=== PATIENT | female | born 1960 | race Caucasian/White ===

== ENCOUNTER 2023-09-26 14:07 | Emergency (ER) | payer OTHER ==
[~2023-09-26] VITALS: Ht 154.9 cm; Wt 83.0 kg
[~2023-09-26 14:07] MED LIST: ACET-2247 PO
[2023-09-26 14:17] VITALS: TEMP 98.3
[2023-09-26] MEDS ORDERED: HYDROmorphone HCL 2 MG/ML SYRINGE IVP ONE (15:00)
[2023-09-26] MEDS ORDERED: ONDANSETRON HCL 4 MG/2 ML VIAL IVP ONE (15:00)
[2023-09-26] MEDS: HYDROmorphone HCL 2 MG/ML SYRINGE IM ONE ×2 (15:31→16:22)
[2023-09-26] MEDS: ONDANSETRON HCL 4 MG/2 ML VIAL IM ONE (15:38)
[2023-09-26] MEDS ORDERED: IBUP-1554 PO (18:37)
[2023-09-26] MEDS ORDERED: PERCT PO (18:37)
[2023-09-26 20:01] VITALS: BP 142/65; PULSE 71; RESP 16
== END 2023-09-26 20:03 | disposition home or self-care (01) ==
LOC: EMS 14:07
DX: S42.292A Other displaced fracture of upper end of left humerus, initial encounter for closed fracture (principal); F17.210 Nicotine dependence, cigarettes, uncomplicated; Z98.890 Other specified postprocedural states; Z88.0 Allergy status to penicillin; Z91.040 Latex allergy status; Z88.6 Allergy status to analgesic agent; Z88.8 Allergy status to other drugs, medicaments and biological substances; W01.0XXA Fall on same level from slipping, tripping and stumbling without subsequent striking against object, initial encounter; Y93.89 Activity, other specified; Y92.89 Other specified places as the place of occurrence of the external cause; Y99.8 Other external cause status
CPT/HCPCS: 99285; 23650; 73200; 73030; 96372; J1170; J2405; 29240

== ENCOUNTER 2024-08-01 19:24 | Inpatient (IN) | payer MEDICARE, OTHER ==
[~2024-08-01] VITALS: Ht 154.9 cm; Wt 102.1 kg
[~2024-08-01 19:24] MED LIST changes: +IBUP-1554 PO; +PERCT PO
[2024-08-01] MEDS ORDERED: FLUT16H NASAL (19:39)
[2024-08-01] MEDS ORDERED: CARV6.2534 PO (19:39)
[2024-08-01] MEDS ORDERED: LORA10TA7 PO (19:39)
[2024-08-01] MEDS ORDERED: QUET200T30 PO (19:39)
[2024-08-01] MEDS ORDERED: TRAZ-257 PO (19:39)
[2024-08-01] MEDS ORDERED: MIRT-93 PO (19:39)
[2024-08-01] MEDS ORDERED: PANT40TA54 PO (19:39)
[2024-08-01] MEDS ORDERED: ATOR40TA71 PO (19:39)
[2024-08-01 20:01] LABS: BASOPHILS % (AUTO) 0.6 % (0.0-2.0); EOSINOPHILS % (AUTO) 2.4 % (1.0-6.0); HEMOGLOBIN 13.4 g/dL (12.0-16.0); LYMPHOCYTES # (AUTO) 3.1 K/uL (1.0-4.8); LYMPHOCYTES % (AUTO) 28.9 % (22.0-44.0); MEAN CORPUSCULAR HEMOGLOBIN 29.5 pg (26.0-34.0); MEAN CORPUSCULAR HGB CONC 32.7 G/dL (31.0-37.0); MEAN CORPUSCULAR VOLUME 90 fL (80-100); MONOCYTES # (AUTO) 0.6 K/uL (0.1-1.0); MONOCYTES % (AUTO) 5.8 % (2.0-9.0); NEUTROPHILS # (AUTO) 6.7 K/uL (1.8-7.7); NEUTROPHILS % (AUTO) 62.3 % (40.0-70.0); PLATELET COUNT (AUTO) 236 K/uL (150-450); RED BLOOD CELL COUNT(AUTO) 4.55 MIL/uL (4.00-5.20); RED CELL DISTRIBUTION WIDTH 14.5 % (11.5-14.5); WHITE BLOOD COUNT (AUTO) 10.8 K/uL (4.5-11.0)
[2024-08-01 20:11] LABS: ANION GAP 10 mmol/L (8-16); CALCIUM, TOTAL 8.6 mg/dL (8.8-10.5); CARBON DIOXIDE 26 mmol/L (22-29); CHLORIDE 105 mmol/L (98-107); GLOMERULAR FILTR. RATE CALC 56 mL/min (>60); GLUCOSE,RANDOM 145 mg/dL (70-110); POTASSIUM 3.7 mmol/L (3.5-5.1); SODIUM SERUM 141 mmol/L (136-145); UREA NITROGEN, BLOOD 19 mg/dL (7-18)
[2024-08-01 20:16] LABS: ALBUMIN 3.3 g/dL (3.4-5.0); BILIRUBIN,DIRECT 0.1 mg/dL (0.00-0.20); BILIRUBIN,TOTAL 0.3 mg/dL (0.1-1.0); TOTAL PROTEIN, SERUM 7.1 g/dL (6.4-8.2)
[2024-08-01 20:21] LABS: TROPONIN I-HIGH SENSITIVITY 8 ng/L (<51)
[2024-08-01 20:29] LABS: B-TYPE NATRIURETIC PEPTIDE 14 pg/mL (0-100)
[2024-08-01] MEDS ORDERED: IOHEXOL 350 MG/ML 100 ML VIAL ONE (20:58)
[2024-08-01] MEDS ORDERED: SODIUM CHLORIDE 0.9% 100 ML ONE (20:58)
[2024-08-01] MEDS: HYDROmorphone HCL 2 MG/ML SYRINGE IVP ONE ×2 (21:01→22:34)
[2024-08-01 21:49] LABS: APPEARANCE,URINE CLEAR (CLEAR); BILIRUBIN,URINE NEGATIVE (NEGATIVE); COLOR,URINE LIGHT YELLOW (YELLOW); GLUCOSE, URINE (UA) NEGATIVE (NEGATIVE); KETONES,URINE NEGATIVE (NEGATIVE); LEUKOCYTE ESTERASE ,URINE SMALL (NEGATIVE); NITRATE,URINE POSITIVE (NEGATIVE); OCCULT BLOOD,URINE NEGATIVE (NEGATIVE); PH,URINE 5.5 (5.0-8.0); PROTEIN,URINE TRACE mg/dL (NEGATIVE); SPECIFIC GRAVITIY, URINE 1.023 (1.003-1.030); UROBILINOGEN,URINE <=1.0 mg/dL (<=1.0)
[2024-08-01 22:00] LABS: RBC,URINE 0-2 /HPF (0-2)
[2024-08-01 22:01] LABS: BACTERIA,URINE Many /HPF (None Seen); SQUAMOUS EPITHELIAL CELL,UR Moderate /LPF (None Seen); WBC,URINE 26-50 /HPF (0-5)
[2024-08-01 22:22] LABS: TROPONIN I-HIGH SENSITIVITY 10 ng/L (<51)
[2024-08-01] MEDS ORDERED: NALOXONE HCL 1 MG/ML 2 ML SYRINGE IVP PRN (22:30)
[2024-08-01] MEDS ORDERED: ACETAMINOPHEN 325 MG TABLET PO PRN (22:30)
[2024-08-01] MEDS: POTASSIUM CHLORIDE 20 MEQ ER TABLET PO ONE (22:34)
[2024-08-01] MEDS: MAGNESIUM SULFATE 1 GM in DEXTROSE 5%-WATER 50 ML IV ONE (22:35)
[2024-08-01 22:50] LABS: LIPASE 43 U/L (16-77)
[2024-08-01] MEDS: CefTRIAXone 1 GM/DEXTROSE 50 ML IV ONE (22:58)
[2024-08-01] MEDS: RINGERS SOLUTION,LACTATED 1,000 ML IV SCH (22:58)
[2024-08-01] MEDS: HEPARIN SODIUM,PORCINE 5,000 UNITS/ML VIAL SQ SCH (23:49)
[2024-08-02] MEDS: DOXYCYCLINE HYCLATE 100 MG in DEXTROSE 5%-WATER 100 ML IV SCH (01:20)
[2024-08-02 02:45] VITALS: BP 145/87; PULSE 65; RESP 22; TEMP 98.2; O2SAT 96
[2024-08-02] MEDS: HYDROmorphone HCL 2 MG/ML SYRINGE IVP PRN (03:04)
[2024-08-02] MEDS: ONDANSETRON HCL 4 MG/2 ML VIAL IVP PRN (03:22)
[2024-08-02 08:18] VITALS: BP 145/52; PULSE 77; RESP 18; TEMP 98; O2SAT 95
[2024-08-02 08:24] LABS: ANION GAP 11 mmol/L (8-16); CALCIUM, TOTAL 8.5 mg/dL (8.8-10.5); CARBON DIOXIDE 27 mmol/L (22-29); CHLORIDE 106 mmol/L (98-107); CREATININE 0.81 mg/dL (0.60-1.30); GLOMERULAR FILTR. RATE CALC > 60 mL/min (>60); GLUCOSE,RANDOM 104 mg/dL (70-110); POTASSIUM 4.2 mmol/L (3.5-5.1); SODIUM SERUM 144 mmol/L (136-145); UREA NITROGEN, BLOOD 14 mg/dL (7-18)
[2024-08-02] MEDS: DOCUSATE SODIUM 100 MG CAPSULE PO SCH (08:33)
[2024-08-02 09:11] LABS: BASOPHILS % (AUTO) 1.2 % (0.0-2.0); EOSINOPHILS % (AUTO) 3.2 % (1.0-6.0); HEMATOCRIT 39.2 % (36-46); HEMOGLOBIN 12.8 g/dL (12.0-16.0); LYMPHOCYTES # (AUTO) 2.5 K/uL (1.0-4.8); LYMPHOCYTES % (AUTO) 26.3 % (22.0-44.0); MEAN CORPUSCULAR HEMOGLOBIN 29.6 pg (26.0-34.0); MEAN CORPUSCULAR HGB CONC 32.7 G/dL (31.0-37.0); MEAN CORPUSCULAR VOLUME 91 fL (80-100); MONOCYTES # (AUTO) 0.6 K/uL (0.1-1.0); MONOCYTES % (AUTO) 6.8 % (2.0-9.0); NEUTROPHILS # (AUTO) 5.9 K/uL (1.8-7.7); NEUTROPHILS % (AUTO) 62.5 % (40.0-70.0); PLATELET COUNT (AUTO) 230 K/uL (150-450); RED BLOOD CELL COUNT(AUTO) 4.33 MIL/uL (4.00-5.20); RED CELL DISTRIBUTION WIDTH 14.4 % (11.5-14.5); WHITE BLOOD COUNT (AUTO) 9.4 K/uL (4.5-11.0)
[2024-08-02 11:40] VITALS: BP 126/58; PULSE 63; RESP 18; TEMP 97.8; O2SAT 95
[2024-08-02 15:52] VITALS: BP 128/57; PULSE 67; RESP 18; TEMP 98.1; O2SAT 95
[2024-08-02 20:00] VITALS: BP 160/69; PULSE 68; RESP 19; TEMP 97.3; O2SAT 94
[2024-08-02] MEDS: MIRTAZAPINE 30 MG TABLET PO SCH (21:00)
[2024-08-02] MEDS: TraZODone HCL 100 MG TABLET PO SCH (21:00)
[2024-08-02] MEDS: CARVEDILOL 6.25 MG TABLET PO SCH (21:00)
[2024-08-02] MEDS: QUEtiapine FUMARATE 200 MG TABLET PO SCH (21:00)
[2024-08-02] MEDS: CefTRIAXone 1 GM/DEXTROSE 50 ML IV SCH (23:00)
[2024-08-03 01:31] VITALS: BP 151/66; PULSE 59; RESP 19; TEMP 97.7; O2SAT 91
[2024-08-03 03:35] VITALS: BP 138/60; PULSE 66; TEMP 98.4; O2SAT 93
[2024-08-03 08:00] VITALS: BP 150/66; PULSE 64; RESP 18; TEMP 98; O2SAT 97
[2024-08-03] MEDS: FLUTICASONE PROPIONATE 50 MCG/SPRAY 16 GM NASAL SPRAY NASAL SCH (08:12)
[2024-08-03] MEDS: ATORVASTATIN CALCIUM 40 MG TABLET PO SCH (08:12)
[2024-08-03] MEDS: PANTOPRAZOLE SODIUM 40 MG DR TABLET PO SCH (08:12)
[2024-08-03] MEDS: LORATADINE 10 MG TABLET PO SCH (09:41)
[2024-08-03] MEDS ORDERED: SODIUM CHLORIDE 0.9% 250 ML IV ONE (13:34)
[2024-08-03 20:05] VITALS: BP 145/89; PULSE 63; RESP 20; TEMP 98.3; O2SAT 96
[2024-08-04 05:18] VITALS: BP_SYST 131; BP_SYST 144; BP_DIAS 83; BP_DIAS 98; PULSE 54; PULSE 90; RESP 18; TEMP 97.7; TEMP 98.2; O2SAT 95; O2SAT 98
[2024-08-04 08:34] VITALS: BP_SYST 143; BP_SYST 156; BP_DIAS 71; BP_DIAS 85; PULSE 60; PULSE 85; RESP 18; TEMP 98.2; O2SAT 97
[2024-08-04 08:40] VITALS: O2SAT 96
[2024-08-04] MEDS ORDERED: CIPR500T10 PO (14:44)
[2024-08-04 16:00] VITALS: BP 119/75; PULSE 58; RESP 18; TEMP 97.4; O2SAT 95
== END 2024-08-04 17:46 | disposition home or self-care (01) | DRG 689 ==
LOC: EMS 19:24 → EDH 22:30 → 5N 08-02 02:25 → 4E 08-03 03:12
PROVIDERS: ADMIT Internal Medicine; ATTEND Internal Medicine
PROC: 05HB33Z Insertion of Infusion Device into Right Basilic Vein, Percutaneous Approach (ICD-10-PCS; principal; 2024-08-02)
DX: N10 Acute pyelonephritis (principal); J15.69 Pneumonia due to other Gram-negative bacteria; Z68.41 Body mass index [BMI] 40.0-44.9, adult; I10 Essential (primary) hypertension; R73.9 Hyperglycemia, unspecified; E78.5 Hyperlipidemia, unspecified; E66.9 Obesity, unspecified; G40.909 Epilepsy, unspecified, not intractable, without status epilepticus; F17.200 Nicotine dependence, unspecified, uncomplicated; Z86.73 Personal history of transient ischemic attack (TIA), and cerebral infarction without residual deficits; Z88.0 Allergy status to penicillin; Z88.1 Allergy status to other antibiotic agents; Z88.5 Allergy status to narcotic agent; N39.0 Urinary tract infection, site not specified
CPT/HCPCS: 36245; 36569; 71045; 74174; 74175; 76937; 80048; 80076; 81001; 83690; 83735; 83880; 84484; 85025; 87077; 87086; 87186; 93005; 96374; 99285; G0378; J0696; J1171; J1644; J2405; J3475; J3490; J7050; J7060; J7120; 36415-L1; 36415-TC

== ENCOUNTER 2024-10-21 19:23 | Emergency (ER) | payer MEDICARE, OTHER ==
[~2024-10-21] VITALS: Ht 154.9 cm; Wt 94.1 kg
[~2024-10-21 19:23] MED LIST changes: -ACET-2247 PO; +ATOR40TA71 PO; +CARV6.2534 PO; +CIPR-515 PO; +FLUT16H NASAL; -IBUP-1554 PO; +LORA10TA7 PO; +MIRT-93 PO; +PANT40TA54 PO; -PERCT PO; +QUET200T30 PO; +TRAZ-257 PO
[2024-10-21 21:02] LABS: ANION GAP 10 mmol/L (8-16); CALCIUM, TOTAL 8.7 mg/dL (8.8-10.5); CARBON DIOXIDE 27 mmol/L (22-29); CHLORIDE 105 mmol/L (98-107); CREATININE 1.04 mg/dL (0.60-1.30); GLOMERULAR FILTR. RATE CALC 53 mL/min (>60); GLUCOSE,RANDOM 92 mg/dL (70-110); POTASSIUM 4.1 mmol/L (3.5-5.1); SODIUM SERUM 142 mmol/L (136-145); UREA NITROGEN, BLOOD 16 mg/dL (7-18)
[2024-10-21 21:11] LABS: TROPONIN I-HIGH SENSITIVITY 9 ng/L (<51)
[2024-10-21] MEDS: ONDANSETRON HCL 4 MG/2 ML VIAL IVP ONE (22:00)
[2024-10-21] MEDS: SODIUM CHLORIDE 0.9% 1,000 ML IV ONE (22:00)
[2024-10-21] MEDS: FentaNYL CITRATE PF 100 MCG/2 ML VIAL IVP ONE (22:01)
[2024-10-21] MEDS ORDERED: SODIUM CHLORIDE 0.9% 100 ML ONE (23:38)
[2024-10-21] MEDS ORDERED: IOHEXOL 350 MG/ML 100 ML VIAL ONE (23:38)
[2024-10-21 23:58] LABS: ALBUMIN 3.3 g/dL (3.4-5.0); BILIRUBIN,DIRECT 0.1 mg/dL (0.00-0.20); BILIRUBIN,TOTAL 0.4 mg/dL (0.1-1.0); TOTAL PROTEIN, SERUM 7.3 g/dL (6.4-8.2)
[2024-10-22] MEDS: HYDROmorphone HCL 2 MG/ML SYRINGE IVP ONE ×2 (00:48→04:24)
[2024-10-22] MEDS: FAMOTIDINE 20 MG/2 ML VIAL IVP ONE (00:48)
[2024-10-22 00:52] LABS: BASOPHILS % (AUTO) 0.5 % (0.0-2.0); EOSINOPHILS % (AUTO) 2.8 % (1.0-6.0); HEMATOCRIT 39.5 % (36-46); HEMOGLOBIN 13.2 g/dL (12.0-16.0); LYMPHOCYTES % (AUTO) 32.4 % (22.0-44.0); MEAN CORPUSCULAR HEMOGLOBIN 29.7 pg (26.0-34.0); MEAN CORPUSCULAR HGB CONC 33.3 G/dL (31.0-37.0); MEAN CORPUSCULAR VOLUME 89 fL (80-100); MONOCYTES # (AUTO) 0.6 K/uL (0.1-1.0); MONOCYTES % (AUTO) 6.4 % (2.0-9.0); NEUTROPHILS # (AUTO) 5.5 K/uL (1.8-7.7); NEUTROPHILS % (AUTO) 57.9 % (40.0-70.0); PLATELET COUNT (AUTO) 231 K/uL (150-450); RED BLOOD CELL COUNT(AUTO) 4.44 MIL/uL (4.00-5.20); RED CELL DISTRIBUTION WIDTH 14.3 % (11.5-14.5); WHITE BLOOD COUNT (AUTO) 9.4 K/uL (4.5-11.0)
[2024-10-22 00:55] LABS: APPEARANCE,URINE CLEAR (CLEAR); BILIRUBIN,URINE NEGATIVE (NEGATIVE); COLOR,URINE LIGHT YELLOW (YELLOW); GLUCOSE, URINE (UA) NEGATIVE (NEGATIVE); KETONES,URINE NEGATIVE (NEGATIVE); LEUKOCYTE ESTERASE ,URINE NEGATIVE (NEGATIVE); NITRATE,URINE NEGATIVE (NEGATIVE); OCCULT BLOOD,URINE NEGATIVE (NEGATIVE); PROTEIN,URINE NEGATIVE (NEGATIVE); SPECIFIC GRAVITIY, URINE 1.022 (1.003-1.030); UROBILINOGEN,URINE <=1.0 mg/dL (<=1.0)
[2024-10-22] MEDS ORDERED: POLY119P3 PO (04:52)
[2024-10-22 05:35] VITALS: BP 155/76; PULSE 76; RESP 16; TEMP 98.6; O2SAT 95
== END 2024-10-22 05:38 | disposition home or self-care (01) ==
LOC: EMS 19:24
DX: R10.13 Epigastric pain (principal); F41.9 Anxiety disorder, unspecified; F32.A Depression, unspecified; J44.9 Chronic obstructive pulmonary disease, unspecified; I10 Essential (primary) hypertension; F12.90 Cannabis use, unspecified, uncomplicated; F17.210 Nicotine dependence, cigarettes, uncomplicated; Z98.890 Other specified postprocedural states; Z86.73 Personal history of transient ischemic attack (TIA), and cerebral infarction without residual deficits; Z88.5 Allergy status to narcotic agent; Z90.49 Acquired absence of other specified parts of digestive tract; Z88.0 Allergy status to penicillin; Z88.1 Allergy status to other antibiotic agents; Z79.899 Other long term (current) drug therapy
CPT/HCPCS: 99285; 74177; 96374; 76705; 96375 ×2; 80048; 80076; 81003; 83690; 84484; 85025; 36415; 93005; 96376; Q9967; J3010; J2405; J7030; J7050; J3490; J1171

== ENCOUNTER 2025-03-19 14:38 | Inpatient (IN) | payer MEDICARE, OTHER ==
[~2025-03-19] VITALS: Ht 157.5 cm; Wt 99.6 kg
[~2025-03-19 14:38] MED LIST changes: +POLY119P3 PO
[2025-03-19] MEDS: ASPIRIN 325 MG TABLET PO ONE (15:01)
[2025-03-19 15:03] VITALS: PULSE 76; RESP 22; O2SAT 96
[2025-03-19] MEDS: ALBUTEROL SULFATE 2.5 MG/0.5 ML NEB SOLUTION NEB ONE ×2 (15:03→16:38)
[2025-03-19] MEDS: IPRATROPIUM BROMIDE 0.5 MG/2.5 ML NEB SOLUTION NEB ONE ×2 (15:03→16:38)
[2025-03-19 15:12] LABS: COVID AG,FIA SOURCE NASAL SWAB
[2025-03-19 15:13] LABS: PLATELET COUNT (AUTO) 206 K/uL (150-450); RED BLOOD CELL COUNT(AUTO) 4.21 MIL/uL (4.00-5.20); RED CELL DISTRIBUTION WIDTH 13.8 % (11.5-14.5); WHITE BLOOD COUNT (AUTO) 8.6 K/uL (4.5-11.0)
[2025-03-19 15:17] LABS: CALCIUM, TOTAL 8.4 mg/dL (8.8-10.5); CREATININE 1.06 mg/dL (0.60-1.30); GLOMERULAR FILTR. RATE CALC 52 mL/min (>60); GLUCOSE,RANDOM 137 mg/dL (70-110); SODIUM SERUM 137 mmol/L (136-145); UREA NITROGEN, BLOOD 18 mg/dL (7-18)
[2025-03-19 15:18] VITALS: PULSE 67; RESP 23; O2SAT 96
[2025-03-19 15:25] LABS: TROPONIN I-HIGH SENSITIVITY 8 ng/L (<51)
[2025-03-19 15:30] LABS: LACTIC ACID 2.1 mmol/L (0.4-2.0)
[2025-03-19 15:44] LABS: SARS-COV2 (COVID) ANTIGEN,FIA Negative (Negative)
[2025-03-19 15:45] LABS: INFLUENZA TYPE A NEGATIVE FOR TYPE A (NEGATIVE); INFLUENZA TYPE B NEGATIVE FOR TYPE B (NEGATIVE)
[2025-03-19 16:38] VITALS: PULSE 65; RESP 22; O2SAT 95
[2025-03-19 16:55] VITALS: PULSE 71; RESP 17; O2SAT 98
[2025-03-19 18:21] LABS: APPEARANCE,URINE CLEAR (CLEAR); GLUCOSE, URINE (UA) NEGATIVE (NEGATIVE); LEUKOCYTE ESTERASE ,URINE NEGATIVE (NEGATIVE); NITRATE,URINE NEGATIVE (NEGATIVE); OCCULT BLOOD,URINE NEGATIVE (NEGATIVE); SPECIFIC GRAVITIY, URINE 1.006 (1.003-1.030)
[2025-03-19 18:35] LABS: SQUAMOUS EPITHELIAL CELL,UR Few /LPF (None Seen)
[2025-03-19] MEDS: KETOROLAC TROMETHAMINE 30 MG/ML VIAL IVP ONE (18:52)
[2025-03-19 21:20] VITALS: BP 146/61; PULSE 76; RESP 18; TEMP 98.6; O2SAT 98
[2025-03-19] MEDS ORDERED: BISACODYL 10 MG RECTAL RECTAL SUPPOSITORY PR PRN (21:45)
[2025-03-19] MEDS ORDERED: ZOLPIDEM TARTRATE 5 MG TABLET PO PRN (21:45)
[2025-03-19] MEDS ORDERED: MAGNESIUM HYDROXIDE SUSPENSION 30 ML UDCUP PO PRN (21:45)
[2025-03-19] MEDS ORDERED: IPRATROPIUM BROMIDE 0.5 MG/2.5 ML NEB SOLUTION NEB PRN (21:45)
[2025-03-19] MEDS: ONDANSETRON HCL 4 MG/2 ML VIAL IVP PRN (23:09)
[2025-03-19] MEDS: SODIUM CHLORIDE 0.9% 1,000 ML IV ONE (23:23)
[2025-03-20] VITALS (12 sets, daily range): BP systolic 110–124; BP diastolic 55–74; PULSE 68–82; RESP 17–22; TEMP 97.5–98.2; O2SAT 95–99
[2025-03-20] MEDS: AZITHROMYCIN 500 MG/NS 250 ML IV SCH (00:13)
[2025-03-20] MEDS: HEPARIN SODIUM,PORCINE 5,000 UNITS/ML VIAL SQ SCH (00:13)
[2025-03-20] MEDS: ALBUTEROL SULFATE 2.5 MG/0.5 ML NEB SOLUTION NEB SCH (02:00)
[2025-03-20] MEDS: IPRATROPIUM BROMIDE 0.5 MG/2.5 ML NEB SOLUTION NEB SCH (02:00)
[2025-03-20] MEDS: ACETAMINOPHEN 325 MG TABLET PO PRN (04:16)
[2025-03-20 07:57] LABS: PLATELET COUNT (AUTO) 200 K/uL (150-450); RED BLOOD CELL COUNT(AUTO) 4.14 MIL/uL (4.00-5.20); RED CELL DISTRIBUTION WIDTH 13.9 % (11.5-14.5); WHITE BLOOD COUNT (AUTO) 14.7 K/uL (4.5-11.0)
[2025-03-20 08:20] LABS: ASPARTATE AMINOTRANSFERASE 22.0 U/L (15-37); CALCIUM, TOTAL 8.2 mg/dL (8.8-10.5); CREATININE 1.05 mg/dL (0.60-1.30); GLOMERULAR FILTR. RATE CALC 52.0 mL/min (>60); GLUCOSE,RANDOM 113.0 mg/dL (70-110); SODIUM SERUM 136.0 mmol/L (136-145); TOTAL PROTEIN, SERUM 6.8 g/dL (6.4-8.2); UREA NITROGEN, BLOOD 25.0 mg/dL (7-18)
[2025-03-20] MEDS: BENZONATATE 100 MG CAPSULE PO SCH ×2 (08:32→17:24)
[2025-03-20] MEDS: ATORVASTATIN CALCIUM 40 MG TABLET PO SCH (08:32)
[2025-03-20] MEDS: PANTOPRAZOLE SODIUM 40 MG DR TABLET PO SCH (08:33)
[2025-03-20] MEDS: DOCUSATE SODIUM 100 MG CAPSULE PO SCH (08:33)
[2025-03-20] MEDS: GuaiFENesin SR 600 MG ER TABLET PO SCH (08:33)
[2025-03-20] MEDS: LORATADINE 10 MG TABLET PO SCH (08:34)
[2025-03-20 08:41] LABS: RBC MORPHOLOGY COMMENT NORMAL RBC MORPH
[2025-03-20] MEDS: BUDESONIDE 0.5 MG/2 ML NEB SOLUTION NEB SCH (20:03)
[2025-03-20] MEDS ORDERED: GuaiFENesin SR 600 MG ER TABLET PO SCH (21:00)
[2025-03-21] VITALS (9 sets, daily range): BP systolic 120–136; BP diastolic 58–85; PULSE 65–82; RESP 15–20; TEMP 97.5–98.4; O2SAT 94–99
[2025-03-21 07:41] LABS: PLATELET COUNT (AUTO) 178 K/uL (150-450); RED BLOOD CELL COUNT(AUTO) 4.23 MIL/uL (4.00-5.20); RED CELL DISTRIBUTION WIDTH 14.1 % (11.5-14.5); WHITE BLOOD COUNT (AUTO) 21.3 K/uL (4.5-11.0)
[2025-03-21 07:50] LABS: CALCIUM, TOTAL 8.2 mg/dL (8.8-10.5); CREATININE 0.79 mg/dL (0.60-1.30); GLOMERULAR FILTR. RATE CALC > 60 mL/min (>60); GLUCOSE,RANDOM 163 mg/dL (70-110); SODIUM SERUM 136 mmol/L (136-145); UREA NITROGEN, BLOOD 23 mg/dL (7-18)
[2025-03-21 08:06] LABS: TROPONIN I-HIGH SENSITIVITY 8 ng/L (<51)
[2025-03-21 08:09] LABS: RBC MORPHOLOGY COMMENT NORMAL RBC MORPH
[2025-03-21] MEDS ORDERED: SODIUM CHLORIDE 0.9% 500 ML IV ONE (22:50)
[2025-03-22] VITALS (12 sets, daily range): BP systolic 131–152; BP diastolic 65–79; PULSE 61–77; RESP 17–20; TEMP 97.8–98.1; O2SAT 94–98
[2025-03-22 07:15] LABS: CALCIUM, TOTAL 8.0 mg/dL (8.8-10.5); CREATININE 0.88 mg/dL (0.60-1.30); GLOMERULAR FILTR. RATE CALC > 60 mL/min (>60); GLUCOSE,RANDOM 160 mg/dL (70-110); SODIUM SERUM 139 mmol/L (136-145); UREA NITROGEN, BLOOD 30 mg/dL (7-18)
[2025-03-22 07:37] LABS: PLATELET COUNT (AUTO) 184 K/uL (150-450); RED BLOOD CELL COUNT(AUTO) 4.18 MIL/uL (4.00-5.20); RED CELL DISTRIBUTION WIDTH 13.9 % (11.5-14.5); WHITE BLOOD COUNT (AUTO) 17.1 K/uL (4.5-11.0)
[2025-03-22 07:48] LABS: RBC MORPHOLOGY COMMENT NORMAL RBC MORPH
[2025-03-22] MEDS: FLUTICASONE/VILANTEROL 200-25 MCG/INH INHALER [14] IH SCH (11:45)
[2025-03-23] VITALS (12 sets, daily range): BP systolic 134–149; BP diastolic 61–80; PULSE 63–76; RESP 18–20; TEMP 98.2–99.3; O2SAT 94–98
[2025-03-23 06:14] LABS: PLATELET COUNT (AUTO) 157 K/uL (150-450); RED BLOOD CELL COUNT(AUTO) 4.15 MIL/uL (4.00-5.20); RED CELL DISTRIBUTION WIDTH 13.8 % (11.5-14.5); WHITE BLOOD COUNT (AUTO) 12.1 K/uL (4.5-11.0)
[2025-03-23 06:29] LABS: CALCIUM, TOTAL 7.9 mg/dL (8.8-10.5); CREATININE 0.88 mg/dL (0.60-1.30); GLOMERULAR FILTR. RATE CALC > 60 mL/min (>60); GLUCOSE,RANDOM 173 mg/dL (70-110); SODIUM SERUM 140 mmol/L (136-145); UREA NITROGEN, BLOOD 29 mg/dL (7-18)
[2025-03-23 07:14] LABS: PLATELET MORPHOLOGY COMMENT LARGE PLTS PRESENT; RBC MORPHOLOGY COMMENT NORMAL RBC MORPH
[2025-03-24] VITALS (8 sets, daily range): BP systolic 138–143; BP diastolic 68–78; PULSE 60–73; RESP 14–18; TEMP 97.8–98.8; O2SAT 95–97
[2025-03-24] MEDS ORDERED: DOXY-354 PO (17:13)
[2025-03-24] MEDS ORDERED: CEFD300C18 PO (17:13)
[2025-03-24] MEDS ORDERED: PRED-729 PO (17:20)
[2025-03-24] MEDS ORDERED: FLUT1BLS3 IH (17:20)
[2025-03-24] MEDS ORDERED: ALBU18HF12 IH (17:20)
[2025-03-24] MEDS ORDERED: IPRAHFA IH (17:20)
[2025-03-24] MEDS: CefTRIAXone 1 GM/DEXTROSE 50 ML IV ONE (19:06)
== END 2025-03-24 20:35 | disposition home or self-care (01) | DRG 177 ==
LOC: EMS 14:38 → EDH 19:21 → 5S 20:45 → 6S 03-21 16:45
PROVIDERS: ADMIT Internal Medicine; ATTEND Internal Medicine
DX: J15.69 Pneumonia due to other Gram-negative bacteria (principal); G93.41 Metabolic encephalopathy; J96.01 Acute respiratory failure with hypoxia; E87.20 Acidosis, unspecified; J44.1 Chronic obstructive pulmonary disease with (acute) exacerbation; I11.0 Hypertensive heart disease with heart failure; E66.9 Obesity, unspecified; F32.A Depression, unspecified; Z68.41 Body mass index [BMI] 40.0-44.9, adult; J06.9 Acute upper respiratory infection, unspecified; E78.5 Hyperlipidemia, unspecified; F17.200 Nicotine dependence, unspecified, uncomplicated; I48.91 Unspecified atrial fibrillation; F41.9 Anxiety disorder, unspecified; Z20.822 Contact with and (suspected) exposure to COVID-19; J30.9 Allergic rhinitis, unspecified; K21.9 Gastro-esophageal reflux disease without esophagitis; T38.0X5A Adverse effect of glucocorticoids and synthetic analogues, initial encounter; Z86.73 Personal history of transient ischemic attack (TIA), and cerebral infarction without residual deficits; Z88.0 Allergy status to penicillin; Z88.1 Allergy status to other antibiotic agents; Z88.5 Allergy status to narcotic agent; Y92.89 Other specified places as the place of occurrence of the external cause
CPT/HCPCS: 70450; 71045; 71250; 80048; 80053; 81001; 83605; 83690; 83880; 84484; 85025; 87040; 87804; 93005; 94640; 96374; 96375; 97116; 97163; 97530; 99285; G0378; J0456; J0696; J1171; J1200; J1644; J1885; J2405; J2919; J7030; J7040; 36415-L1; 36415-TC; J7613